=== PATIENT | male | born 1950 | race Caucasian/White ===

== ENCOUNTER 2017-05-16 06:59 | Outpatient (CLI) | payer MEDICARE ==
[2017-05-16 07:30] LABS: HEMATOCRIT 44.8 % (39.0-53.0); HEMOGLOBIN 15.3 g/dL (13.0-17.5); MEAN CORPUSCULAR HEMOGLOBIN 31 pg (25-35); MEAN CORPUSCULAR HGB CONC 34 g/dL (31-37); MEAN CORPUSCULAR VOLUME 91 fL (79-100); PLATELET COUNT 268 x10^3/uL (140-400); RED CELL DISTRIBUTION WIDTH 13.1 % (11.5-14.5); WHITE BLOOD COUNT 5.7 x10^3/uL (4.0-11.0)
[2017-05-16 07:32] LABS: ANION GAP 8 (6-14); BLOOD UREA NITROGEN 4 mg/dL (8-26); CARBON DIOXIDE 30 mmol/L (21-32); CHLORIDE 95 mmol/L (98-107); CREATININE 0.7 mg/dL (0.7-1.3); GFR 112.8; GLUCOSE 85 mg/dL (70-99); POTASSIUM 4.3 mmol/L (3.5-5.1); SODIUM 133 mmol/L (136-145)
[2017-05-16 07:41] LABS: PARTIAL THROMBOPLASTIN TIME 28 SEC (24-38); PROTHROMBIN TIME PATIENT 12.4 SEC (11.7-14.0)
[2017-05-16] MEDS ORDERED: IODIXANOL 320 MG/ML 100 ML VIAL. (08:03)
[2017-05-16] MEDS ORDERED: LIDOCAINE WITH 8.4% SOD BICARB 3 ML DISP.SYRIN. (08:03)
[2017-05-16] MEDS ORDERED: IODIXANOL 320MG/ML 50ML VIAL. ×2 (08:04→10:08)
[2017-05-16] MEDS ORDERED: MIDAZOLAM HCL/PF 2 MG/2 ML VIAL. ×2 (08:11→09:22)
[2017-05-16] MEDS ORDERED: fentaNYL PF VIAL 100 MCG/2 ML VIAL (08:12)
[2017-05-16] MEDS ORDERED: HEPARIN for IV BOLUS 10,000 UNIT/10 ML VIAL. (09:23)
[2017-05-16] MEDS: IODIXANOL 320 MG/ML 100 ML VIAL. IART (10:48)
[2017-05-16] MEDS: IODIXANOL 320MG/ML 50ML VIAL. IART (10:48)
[2017-05-16] MEDS: MIDAZOLAM HCL/PF 2 MG/2 ML VIAL. IV (10:49)
[2017-05-16] MEDS: LIDOCAINE WITH 8.4% SOD BICARB 3 ML DISP.SYRIN. IJ (10:49)
[2017-05-16] MEDS: fentaNYL PF VIAL 100 MCG/2 ML VIAL IV (10:50)
[2017-05-16] MEDS: HEPARIN for IV BOLUS 10,000 UNIT/10 ML VIAL. IV (10:51)
[2017-05-16] MEDS: CLOPIDOGREL BISULFATE 75 MG TABLET PO (11:00)
== END 2017-05-16 13:40 | disposition home or self-care (01) ==
LOC: INTRAD 06:59
DX: I70.213 Atherosclerosis of native arteries of extremities with intermittent claudication, bilateral legs (principal); I71.4 Abdominal aortic aneurysm, without rupture
CPT/HCPCS: 36415; 37226; 75625; 75630; 75716; 76937; 80048; 85027; 85610; 85730; 99152; 99153; C1713; C1725; C1760; C1769; C1892; C1894; C2623; G0269; J1644; J2250; J3010

== ENCOUNTER → 2018-03-27 | Outpatient (CLI) | payer MEDICARE ==
[~2018-03-27] VITALS: Ht 182.9 cm; Wt 72.6 kg
[2018-03-27] VITALS (10 sets, daily range): BP systolic 109–160; BP diastolic 62–78
[~2018-03-27] MED LIST: AMLO10TA6 PO; ASPI-482 PO; BENA20TA4 PO; CLOP75TA PO; CLOP75TA57 PO; CLOPIDOGREL BISULFATE 75 MG TABLET ONE; CLOPIDOGREL BISULFATE 75 MG TABLET PO ONE; CONTRAST GIVEN. MC PRN; HEPARIN for ARTERIAL LINE 1,500 ML ONE; HEPARIN for IV BOLUS 10,000 UNIT/10 ML VIAL. IV ONE; HEPARIN for IV BOLUS 10,000 UNIT/10 ML VIAL. ONE; IODIXANOL 320 MG/ML 100 ML VIAL. IV ONE; IODIXANOL 320 MG/ML 100 ML VIAL. ONE; IODIXANOL 320 MG/ML 50ML VIAL. ONE; LIDOCAINE WITH 8.4% SOD BICARB 3 ML DISP.SYRIN. IJ ONE; LIDOCAINE WITH 8.4% SOD BICARB 3 ML DISP.SYRIN. ONE; METO50TA6 PO; MIDAZOLAM HCL/PF 5 MG/5 ML VIAL. IV ONE; MIDAZOLAM HCL/PF 5 MG/5 ML VIAL. ONE; fentaNYL PF VIAL 250 MCG/5 ML VIAL IV ONE; fentaNYL PF VIAL 250 MCG/5 ML VIAL ONE
[2018-03-27 08:10] LABS: ALBUMIN 3.4 g/dL (3.4-5.0); ALBUMIN/GLOBULIN RATIO 0.8 (1.0-1.7); CALCIUM 9.1 mg/dL (8.5-10.1); CREATININE 0.8 mg/dL (0.7-1.3); GFR 96.7; POTASSIUM 4.8 mmol/L (3.5-5.1); TOTAL BILIRUBIN 0.7 mg/dL (0.2-1.0); TOTAL PROTEIN 7.5 g/dL (6.4-8.2)
[2018-03-27 08:19] LABS: BASO # 0.1 x10^3/uL (0.0-0.2); BASO % 2 % (0-3); EOS # 0.2 x10^3/uL (0.0-0.7); EOS % 3 % (0-3); HEMOGLOBIN 14.5 g/dL (13.0-17.5); LYMPH # 2.1 x10^3/uL (1.0-4.8); LYMPH % 39 % (24-48); MEAN CORPUSCULAR HEMOGLOBIN 30 pg (25-35); MEAN CORPUSCULAR HGB CONC 33 g/dL (31-37); MEAN CORPUSCULAR VOLUME 91 fL (79-100); MONO # 0.7 x10^3/uL (0.0-1.1); MONO % 13 % (0-9); NEUT # 2.4 x10^3uL (1.8-7.7); NEUT % 43 % (31-73); PLATELET COUNT 285 x10^3/uL (140-400); RED BLOOD COUNT 4.85 x10^6/uL (4.30-5.70); RED CELL DISTRIBUTION WIDTH 13.1 % (11.5-14.5); WHITE BLOOD COUNT 5.5 x10^3/uL (4.0-11.0)
--- NOTE | 2018-03-27 12:43 | RAD ---
03/27/2018 1. Pelvic angiography 2. Left lower extremity angiography 3. Balloon angioplasty and stenting of the right superficial femoral artery 4. Atherectomy of drug coated balloon angioplasty of the right common femoral artery 5. Placement of self expanding stent, left common iliac artery Discussion: Patient is a 67-year-old male with long-standing peripheral vascular disease and claudication. Over the last several months, the patient reports increasing left-sided claudication. Right claudication has improved following recent intervention. The risks and benefits of the procedure were discussed the patient. Informed consent was obtained. A timeout procedure was performed. The right groin was prepped and draped using sterile barrier technique. Ultrasound evaluation demonstrates the right common femoral artery to have mild narrowing secondary to posterior calcification, but an otherwise patent artery. The overlying skin was anesthetized 1% lidocaine. Under direct ultrasound guidance the right common femoral artery was accessed using micropuncture technique. Reference ultrasound images were saved the medical record. A 5 Haitian vascular sheath was placed. A Omni flush catheter was advanced into the inferior abdominal aorta. Pelvic angiography was performed. Diffuse irregularity of the right common and external iliac artery seen without evidence of flow-limiting stenosis. A 60% narrowing of the left common iliac artery is seen, just above the bifurcation of the internal iliac artery. Left external iliac artery is patent. The aortic bifurcation was crossed. The left common femoral artery was selected. Left lower extremity angiography was performed. Densely calcified eccentric up to 70% % stenoses are noted within the left common femoral artery extending of the proximal left SFA. Left profunda artery is patent. There is chronic total occlusion of the mid left SFA extending to the high adductor canal where there is reconstitution via tortuous collaterals. The popliteal artery is patent. The anterior tibial artery, and peroneal artery appear to be chronically occluded. Posterior tibial artery is a dominant blood supply to the foot. An up and over vascular sheath was placed. A guidewire was manipulated through the superficial femoral artery occlusion. Balloon dilatation was performed with a 4 mm x 100 mm balloon following angioplasty, suboptimal flow remained present. 6 mm x 15 cm and 6 mm x 5 cm covered stents were placed spanning the occlusion. This results in the good angiographic result. No significant distal localization was identified. Directional atherectomy was then performed within the right common femoral artery. Atherectomy was performed using a distal protection device. This resulted in some improvement but persistent narrowing. This was subsequently treated with 6 mm x 40 mm drug coated balloon angioplasty. This significantly improved morphology and flow. No significant distal embolization was identified. A 10 mm self expanding stent was placed spanning the distal left common iliac artery stenosis. This is postdilated to 10 mm. This significantly improved morphology and flow. No significant distal embolization was identified. A Mynx device was used to achieve hemostasis of the right common femoral puncture site. No immediate complications were identified. The patient tolerated the procedure well. The procedures performed under conscious sedation including continuous cardiopulmonary monitoring via a dedicated sedation nurse. Wequ-ur-fphs sedation time: 2 hours Total fluoroscopy time: 36.5 minutes Dose area product 223 Gycm2 Impression: 1. Chronic total occlusion, left superficial femoral artery, proximal 18 cm treated with angioplasty and self expanding covered stent placement 4. Densely calcified 70% narrowing of the left common femoral artery treated with directional atherectomy and drug coated balloon angioplasty. 5. 60% narrowing of the left common iliac artery treated with placement of a self-expanding stent.
--- NOTE | 2018-03-27 14:45 | NUR ---
Discharge Note: CHUCK SCHMITZ Discharge instructions and discharge home medications reviewed with patient and friend and a copy given. All questions have been answered and understanding verbalized including s/s requiring further attention, follow up, and site care. The following instructions and handouts were given: post stent placement, post moderate sedation, and smoking cessation Discontinued lines and drains:right wrist Patient discharged to home with friend.
[2018-03-29 17:15] LABS: ANA INTERP Negative (.)
== END | disposition home or self-care (01) ==
LOC: INTRAD 07:03
PROVIDERS: ATTEND Family Medicine
DX: I70.213 Atherosclerosis of native arteries of extremities with intermittent claudication, bilateral legs (principal); I70.92 Chronic total occlusion of artery of the extremities; Z79.899 Other long term (current) drug therapy
CPT/HCPCS: 36415; 37221; 37227; 75625; 75710; 76937; 80053; 82607; 84443; 85025; 85610; 86038; 99152; 99153; C1724; C1725; C1758; C1760; C1769; C1892; C1894; C2623; J1644; J2250; J3010; Q9967

== ENCOUNTER 2021-02-10 13:52 | Inpatient (IN) | payer MEDICARE ==
[2021-02-10] VITALS (12 sets, daily range): BP systolic 112–165; BP diastolic 67–96
[~2021-02-10] VITALS: Ht 181.6 cm; Wt 73.9 kg
[~2021-02-10 13:52] MED LIST changes: +AMLO-187 PO; -AMLO10TA6 PO; -BENA20TA4 PO; +BENA20TA84 PO; -CLOPIDOGREL BISULFATE 75 MG TABLET ONE; -CLOPIDOGREL BISULFATE 75 MG TABLET PO ONE; -CONTRAST GIVEN. MC PRN; -HEPARIN for ARTERIAL LINE 1,500 ML ONE; -HEPARIN for IV BOLUS 10,000 UNIT/10 ML VIAL. IV ONE; -HEPARIN for IV BOLUS 10,000 UNIT/10 ML VIAL. ONE; -IODIXANOL 320 MG/ML 100 ML VIAL. IV ONE; -IODIXANOL 320 MG/ML 100 ML VIAL. ONE; -IODIXANOL 320 MG/ML 50ML VIAL. ONE; -LIDOCAINE WITH 8.4% SOD BICARB 3 ML DISP.SYRIN. IJ ONE; -LIDOCAINE WITH 8.4% SOD BICARB 3 ML DISP.SYRIN. ONE; -MIDAZOLAM HCL/PF 5 MG/5 ML VIAL. IV ONE; -MIDAZOLAM HCL/PF 5 MG/5 ML VIAL. ONE; -fentaNYL PF VIAL 250 MCG/5 ML VIAL IV ONE; -fentaNYL PF VIAL 250 MCG/5 ML VIAL ONE
[2021-02-10 16:27] LABS: BASO % 0 % (0-3); EOS % 0 % (0-3); HEMATOCRIT 44.1 % (39.0-53.0); HEMOGLOBIN 14.4 g/dL (13.0-17.5); LYMPH # 1.2 x10^3/uL (1.0-4.8); LYMPH % 14 % (24-48); MEAN CORPUSCULAR HEMOGLOBIN 31 pg (25-35); MEAN CORPUSCULAR HGB CONC 33 g/dL (31-37); MEAN CORPUSCULAR VOLUME 95 fL (79-100); MONO # 0.9 x10^3/uL (0.0-1.1); MONO % 10 % (0-9); NEUT # 6.8 x10^3/uL (1.8-7.7); NEUT % 76 % (31-73); PLATELET COUNT 187 x10^3/uL (140-400); RED BLOOD COUNT 4.66 x10^6/uL (4.30-5.70); RED CELL DISTRIBUTION WIDTH 15.7 % (11.5-14.5)
--- NOTE | 2021-02-10 16:37 | RAD ---
INDICATION : Reason: jaundice / Spl. Instructions: / History: COMPARISON: None TECHNIQUE: Multiple ultrasound images obtained through the abdomen in grayscale and color. FINDINGS: Pancreas: No gross abnormality identified in visualized portions of pancreas. Partially seen secondar y to overlying structures obscuring. Liver: Mildly echogenic. Nonspecific but can be from fatty infiltration. Prominent in size. Gallbladder: There is some wall thickening of the gallbladder measuring up to about 6-7 mm with adjac ent edema. Definite stones not seen. Partially contracted. IVC: Well-distended. Common Bile Duct: Not dilated. Right Kidney: Couple of cysts at the right kidney measuring up to 24 mm without hydronephrosis. IMPRESSION: * Gallbladder wall thickening with pericholecystic edema. Differential considerations would include acalculus cholecystitis, reactive changes to adjacent liver disease or a systemic process such as hy poproteinemia. If additional information is needed nuclear hepatobiliary scan could further assess fo r cholecystitis. Electronically signed by: Red Ponce MD (02/10/2021 4:34 PM) [id number]
[2021-02-10 16:41] LABS: CALCIUM 8.5 mg/dL (8.5-10.1); CREATININE 0.8 mg/dL (0.7-1.3); GFR 95.8; POTASSIUM 4.2 mmol/L (3.5-5.1)
[2021-02-10 16:47] LABS: ALBUMIN 3.5 g/dL (3.4-5.0); ALBUMIN/GLOBULIN RATIO 0.9 (1.0-1.7); DIRECT BILIRUBIN 0.8 mg/dL (0.0-0.2); MAGNESIUM 2.1 mg/dL (1.8-2.4); PROTHROMBIN TIME PATIENT 16.7 SEC (11.7-14.0); TOTAL BILIRUBIN 2.9 mg/dL (0.2-1.0); TOTAL PROTEIN 7.2 g/dL (6.4-8.2)
--- NOTE | 2021-02-10 16:53 | RAD ---
EXAM: Chest, single view. HISTORY: Cough. COMPARISON: None. FINDINGS: A frontal view of the chest is obtained. There is cardiomegaly. There is no infiltrate, ple ural effusion or pneumothorax. There are chronic appearing interstitial changes. There is suspected b asilar atelectasis. There are calcified granulomas. IMPRESSION: Cardiomegaly. Chronic appearing interstitial changes with suspected basilar atelectasis. Electronically signed by: Susana Mcnulty MD (02/10/2021 4:50 PM) [id number]
--- NOTE | 2021-02-10 17:13 | PHYS DOC ---
Past Medical History Past Medical History: A-Fib, COPD, Hypertension, TIA, Other Additional Past Medical Histor: BRAIN ANEURSYM X2 (ANDREA GROSS APRN) Past Surgical History: Other Additional Past Surgical Histo: STENTS IN LEGS,BRAIN SURG (ANDREA GROSS APRN) Smoking Status: Current Every Day Smoker Additional Information: 0.5 PPD Alcohol Use: None (ANDREA GROSS APRN) General Adult EDM: Chief Complaint: MULTIPLE COMPLAINTS HPI: HPI: Patient is a 70 year old male who presents with abdominal fullness. Patient states "my belly has gotten bigger in the last couple of days". Patient denies nausea/vomiting/diarrhea. Afebrile. Denies abdominal pain. No chest pain or shortness of breath. Patient was recently treated with steroids for upper respiratory infection. Patient has history of A. fib, (ANDREA GROSS APRN) Review of Systems: Review of Systems: ROS At least 10 ROS systems have been reviewed and are negative except as documented in the HPI. General: Negative except as outlined in HPI above. Skin: Negative except as outlined in HPI above. HEENT: Negative except as outlined in HPI above. Neck: Negative except as outlined in HPI above. Respiratory: Negative except as outlined in HPI above.. Cardiovascular: Negative except as outlined in HPI above. Abdomen: Negative except as outlined in HPI above. : Negative except as outlined in HPI above. Back/MSK: Negative except as outlined in HPI above. Neuro: Negative except as outlined in HPI above. Psych: Negative except as outlined in HPI above. (ANDREA GROSS APRN) Heart Score: C/O Chest Pain: No Risk Factors: Risk Factors: DM, Current or recent (<one month) smoker, HTN, HLP, family history of CAD, obesity. Risk Scores: Score 0 - 3: 2.5% MACE over next 6 weeks - Discharge Home Score 4 - 6: 20.3% MACE over next 6 weeks - Admit for Clinical Observation Score 7 - 10: 72.7% MACE over next 6 weeks - Early Invasive Strategies (ANDREA GROSS APRN) Allergies: Allergies: Allergies Coded Allergies Type Severity Reaction Last Updated Verified No Known Drug Allergies 05/16/17 No (ANDREA GROSS APRN) Physical Exam: PE: Constitutional: Well developed, well nourished, no acute distress, non-toxic appearance. [] HENT: Normocephalic, atraumatic, bilateral external ears normal, oropharynx moist, no oral exudates, nose normal. [] Eyes: PERRLA, EOMI, yellow sclera, conjunctiva normal, no discharge. [] Neck: Normal range of motion, no tenderness, supple, no stridor. [] Cardiovascular:Heart rate regular rhythm, no murmur [] Lungs & Thorax: Bilateral breath sounds clear to auscultation [] Abdomen: Bowel sounds normal, distended, no tenderness Skin: Warm, dry, jaundice scabs on bilateral lower feet Back: No tenderness, no CVA tenderness. [] Extremities: No tenderness, ROM intact, bilateral peripheral edema Neurologic: Alert and oriented X 3, normal motor function, normal sensory function, no focal deficits noted. [] Psychologic: Affect normal, judgement normal, mood normal. [] (ANDREA GROSS APRN) Current Patient Data: Labs: Laboratory Tests Test 02/10/21 15:38 White Blood Count 9.0 x10^3/uL (4.0-11.0) Red Blood Count 4.66 x10^6/uL (4.30-5.70) Hemoglobin 14.4 g/dL (13.0-17.5) Hematocrit 44.1 % (39.0-53.0) Mean Corpuscular Volume 95 fL (79-100) Mean Corpuscular Hemoglobin 31 pg (25-35) Mean Corpuscular Hemoglobin Concent 33 g/dL (31-37) Red Cell Distribution Width 15.7 % (11.5-14.5) H Platelet Count 187 x10^3/uL (140-400) Neutrophils (%) (Auto) 76 % (31-73) H Lymphocytes (%) (Auto) 14 % (24-48) L Monocytes (%) (Auto) 10 % (0-9) H Eosinophils (%) (Auto) 0 % (0-3) Basophils (%) (Auto) 0 % (0-3) Neutrophils # (Auto) 6.8 x10^3/uL (1.8-7.7) Lymphocytes # (Auto) 1.2 x10^3/uL (1.0-4.8) Monocytes # (Auto) 0.9 x10^3/uL (0.0-1.1) Eosinophils # (Auto) 0.0 x10^3/uL (0.0-0.7) Basophils # (Auto) 0.0 x10^3/uL (0.0-0.2) Sodium Level 134 mmol/L (136-145) L Potassium Level 4.2 mmol/L (3.5-5.1) Chloride Level 95 mmol/L (98-107) L Carbon Dioxide Level 30 mmol/L (21-32) Anion Gap 9 (6-14) Blood Urea Nitrogen 18 mg/dL (8-26) Creatinine 0.8 mg/dL (0.7-1.3) Estimated GFR (Cockcroft-Gault) 95.8 BUN/Creatinine Ratio 23 (6-20) H Glucose Level 99 mg/dL (70-99) Calcium Level 8.5 mg/dL (8.5-10.1) Magnesium Level 2.1 mg/dL (1.8-2.4) Total Bilirubin 2.9 mg/dL (0.2-1.0) H Direct Bilirubin 0.8 mg/dL (0.0-0.2) H Aspartate Amino Transferase (AST) 23 U/L (15-37) Alanine Aminotransferase (ALT) 33 U/L (16-63) Alkaline Phosphatase 132 U/L (46-116) H Total Protein 7.2 g/dL (6.4-8.2) Albumin 3.5 g/dL (3.4-5.0) Albumin/Globulin Ratio 0.9 (1.0-1.7) L Ethyl Alcohol Level < 10 mg/dL (0-10) Laboratory Tests 02/10/21 15:38 Laboratory Tests 02/10/21 15:38 Vital Signs: Vital Signs Date Time Temp Pulse Resp B/P (MAP) Pulse Ox O2 Delivery O2 Flow Rate FiO2 02/10/21 15:50 150 159/96 (117) Room Air 02/10/21 15:17 97.7 20 98 97.7 (ANDREA GROSS APRN) EKG: EKG: [] 1534sinus tachycardia, heart rate [address] elevation. Read by Dr. Verde 1843A. fib RVR, heart rate 133 bpm, no ST elevation. Read by Dr. Verde (ANDREA GROSS APRN) Radiology/Procedures: Radiology/Procedures: []INDICATION : Reason: jaundice / Spl. Instructions: / History: COMPARISON: None TECHNIQUE: Multiple ultrasound images obtained through the abdomen in grayscale and color. FINDINGS: Pancreas: No gross abnormality identified in visualized portions of pancreas. Partially seen secondary to overlying structures obscuring. Liver: Mildly echogenic. Nonspecific but can be from fatty infiltration. Prominent in size. Gallbladder: There is some wall thickening of the gallbladder measuring up to about 6-7 mm with adjacent edema. Definite stones not seen. Partially contracted. IVC: Well-distended. Common Bile Duct: Not dilated. Right Kidney: Couple of cysts at the right kidney measuring up to 24 mm without hydronephrosis. IMPRESSION: * Gallbladder wall thickening with pericholecystic edema. Differential considerations would include acalculus cholecystitis, reactive changes to adjacent liver disease or a systemic process such as hypoproteinemia. If additional information is needed nuclear hepatobiliary scan could further assess for cholecystitis. Electronically signed by: Red Ponce MD (02/10/2021 4:34 PM) DocalyticsKTOP- [id number] EXAM: Chest, single view. HISTORY: Cough. COMPARISON: None. FINDINGS: A frontal view of the chest is obtained. There is cardiomegaly. There is no infiltrate, pleural effusion or pneumothorax. There are chronic appearing interstitial changes. There is suspected basilar atelectasis. There are calcified granulomas. IMPRESSION: Cardiomegaly. Chronic appearing interstitial changes with suspected basilar atelectasis. Electronically signed by: Susana Mcnulty MD (02/10/2021 4:50 PM) [id number] (ANDREA GROSS APRN) Course & Med Decision Making: Course & Med Decision Making Pertinent Labs and Imaging studies reviewed. (See chart for details) [] 70-year-old male presents with abdominal distention, urinary retention, bilateral peripheral edema. Patient states that he has had trouble with urinating for last couple of days and that is when he noticed abdominal distention as well. Patient sclera. Very yellow and his skin was very jaundiced. Abdominal distention appears to most likely be from ascites. Patient states he drinks 1 beer a day. Patient was denying abdominal pain, shortness of breath, chest pain. Patient's heart rate was elevated in the 150s, but showing sinus tachycardia. Patient has a history of A. fib. Patient currently takes Xarelto but denies any medication for rate control.. Work-up in ER consist of labs, urinalysis, normal ultrasound, chest x-ray, CT abdomen pelvis. Ultrasound shows gallbladder wall thickening with pericholecystic edema with possible cholecystitis, liver disease or a systemic process such as hypoproteinemia. CT abdomen and pelvis ordered. Jiang was placed due to urinary retention. 400 cc out after Jiang placed. Patient's rhythm changed from sinus tachycardia to A. fib RVR. Patient given Cardizem bolus and Cardizem drip started. WBC, 9.0. Total bili 2.9, direct bili 0.8, alkaline phosphate 132. BNP 9653, lipase 73 Discussed results with patient. Advised patient that he would need to be admi tted to the hospital for further management and consult with cardiology. Patient agrees with discharge plan. I spoke with Dr. Lyman who will be accepting patient for A. fib RVR, urinary retention, CHF exacerbation. (ANDREA GROSS APRN) Course & Med Decision Making This patient was initially seen by the nurse practitioner. She was unsure how to proceed with his emergency department work-up and treatment/management of his condition. I saw the patient personally. He has had some increased abdominal girth and bloating. He is had some mild jaundice and scleral icterus, for quite some time, per the patient and his . This is not new today at all. He is manifesting evidence of significant tachycardia, atrial fibrillation with rapid ventricular response. There is some mild lateral ischemic changes noted. He adamantly denies chest pain or dyspnea. He denies dizziness, focal weakness or syncope. I ordered diltiazem bolus and drip. The patient denies abdominal pain. On exam he does have appear to have a fluid wave and at least mild ascites with abdominal distention. He has no tenderness at all on abdominal exam. He has no evidence of right upper quadrant tenderness, no evidence of SBP clinically. I suspect periportal edema from liver disease and ascites explains that radiographic findings of the gallbladder. Clinically he does not have any evidence of cholecystitis, and he continues to deny any subjective complaints of abdominal pain or nausea or vomiting or biliary colic symptoms. He has been afebrile here. He denies fevers at home. He has not been able to urinate very well, and only small amounts. His bladder is palpable up to his umbilicus. I recommend the patient have a Jiang catheter placed. Urine is pending at time of his admission. The nurse practitioners told explicitly to follow-up on the results of this exam. He will be admitted to Dr. Lyman. (DARIUS VERDE DO) Keisha Disclaimer: Keisha Disclaimer: This electronic medical record was generated, in whole or in part, using a voice recognition dictation system. (ANDREA GROSS APRN) Departure Departure Impression: Primary Impression: Urinary retention Additional Impression: Atrial fibrillation with RVR Disposition: ADMITTED INPATIENT Admitting Physician: Sofia Lyman (DARIUS VERDE DO) Condition: GUARDED Referrals: SOFIA LYMAN MD (PCP) Scripts Furosemide (LASIX) 20 Mg Tablet 1 TAB PO DAILY for chf for 30 Days, #30 TAB 0 Refills Prov: SOFIA LYMAN MD 02/13/21 Metoprolol Succinate (METOPROLOL SUCCINATE ( XL )) 100 Mg Tab.er.24h 100 MG PO DAILY for a-fib for 30 Days, #30 TAB.SR Prov: SOFIA LYMAN MD 02/13/21 Tamsulosin Hcl (FLOMAX) 0.4 Mg Cap.er.24h 0.4 MG PO QHS for bph for 30 Days, #30 CAP.SR Prov: SOFIA LYMAN MD 02/13/21 ANDREA GROSS APRN Feb 10, 2021 17:13 DARIUS VERDE DO Feb 15, 2021 08:42
[2021-02-10] MEDS ORDERED: IV NORMAL SALINE 1000ML BAG 1,000 ML IV ONE (17:15)
[2021-02-10] MEDS ORDERED: ASPIRIN CHEWABLE 81 MG TABLET. PO ONE (18:00)
[2021-02-10] MEDS ORDERED: FUROSEMIDE 20 MG/2 ML VIAL. IVP ONE (18:00)
[2021-02-10 18:57] LABS: BILIRUBIN,URINE SMALL (NEG); CLARITY,URINE CLEAR; COLOR,URINE AMBER; NITRITE,URINE NEGATIVE (NEG); PH,URINE 5.5 (<5.0-8.0); PROTEIN,URINE 30 mg/dL (NEG-TRACE)
[2021-02-10] MEDS ORDERED: PIPERACILLIN/TAZOBACTAM 3.375 GM in IV NORMAL SALINE 50ML 50 ML IV ONE (19:00)
[2021-02-10] MEDS ORDERED: IOHEXOL 300 MG/ML 100ML VIAL. IV ONE (19:00)
[2021-02-10 19:04] LABS: BARBITURATES NEG (NEG); BENZODIAZEPINES NEG (NEG); CANNABINOIDS NEG (NEG); COCAINE NEG (NEG); METHADONE NEG (NEG); OPIATES POS (NEG); PHENCYCLIDINE NEG (NEG)
[2021-02-10 19:05] LABS: AMPHETAMINE/METHAMPHETAMINE NEG (NEG)
[2021-02-10 19:06] LABS: BACTERIA,URINE 0 /HPF (0-FEW); RBC,URINE >40 /HPF (0-2); WBC,URINE 0 /HPF (0-4)
--- NOTE | 2021-02-10 19:13 | RAD ---
CT abdomen pelvis with contrast. HISTORY: Jaundice, abdominal distention CT abdomen pelvis was done using 75 mL Omnipaque 300 contrast. There are small bilateral pleural effu sions. There is mild atelectasis in the lung bases. A focal liver lesion is not identified. Spleen is small. Adrenal glands are unremarkable. Pancreatic lesion is not identified. There is extensive vasc ular calcification. There is no hydronephrosis in the kidneys. There are bilateral renal cysts. There is mild ascites. There is no small bowel obstruction. There is a Jiang in the bladder. There is a 4. 6 cm abdominal aortic aneurysm without rupture. Thin reconstruction images could be of benefit to bet ter evaluate the mesenteric vessels. 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 There is some decreased enhancement of the portal vein although identified defi nitive portal thrombosis is not identified. IMPRESSION: 1. Bilateral effusions. 2. Mild ascites. 3. 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 4. 4.6 cm abdominal aortic aneurysm. 5. A focal liver lesion is not identified. PQRS Compliance Statement: One or more of the following individualized dose reduction techniques were utilized for this examinat ion: 1. Automated exposure control 2. Adjustment of the mA and/or kV according to patient size 3. Use of iterative reconstruction technique Electronically signed by: Boris Feliz MD (02/10/2021 7:11 PM) [facility]
[2021-02-10] MEDS ORDERED: RIVA15TA PO (21:03)
--- NOTE | 2021-02-10 21:44 | NUR ---
ADMThe patient, CHUCK SCHMITZ, 70 y/o, M admitted by SOFIA MONTEMAYOR MD, was given written information regarding hospital policies, unit procedures and contact persons. Valuables were checked and documented. explained poc, pt verbalized understanding. will cont to monitor pt status and safety. pmrn.
--- NOTE | 2021-02-10 23:33 | EKG ---
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
[2021-02-11] VITALS (25 sets, daily range): BP systolic 55–141; BP diastolic 47–100
--- NOTE | 2021-02-11 09:52 | PDOC2 ---
GI CONSULT Date of Service: DATE: 02/11/21 TIME: 09:52 Reason For Consult: elevated bilirubin HPI: HPI: 70 y/o male seen with Dr. Ng earlier this morning. Says he was admitted w/ A Fib and COPD, also discusses need for catheter to drain his bladder. ER notes reviewed - c/o abdominal distention, urinary retention, and constipation. We are asked to see for elevated bilirubin (2.9) which was normal in 2019 on rev iew of past labs. He reports h/o heavy alcohol use in the past but no liver problems he's aware of. Takes Xarelto. FELECIA negative in 2019. PMH: PMH: A Fib, COPD, HTN, TIAs, PAD LE stents, brain aneurysm repair Social History: Smoke: <1 pack per day ALCOHOL: other (1 beer daily, heavier in past) ROS: GEN: Denies fevers, chills, sweats HEENT: Denies blurred vision, sore throat CV: +fluttering heart RESP: +SOA GI: Per HPI : +urinary retention ENDO: Denies weight changes NEURO: Denies confusion, dizziness MSK: Denies weakness, joint pain/swelling SKIN: Denies jaundice, pruritus Vitals: Vitals: Vital Signs Date Time Temp Pulse Resp B/P (MAP) Pulse Ox O2 Delivery O2 Flow Rate FiO2 02/11/21 07:00 97.6 89 18 135/78 (97) 97 Nasal Cannula 2.0 97.6 Labs: Labs: Laboratory Tests Test 02/10/21 15:38 02/10/21 16:50 02/10/21 17:14 02/10/21 18:28 White Blood Count 9.0 x10^3/uL (4.0-11.0) Red Blood Count 4.66 x10^6/uL (4.30-5.70) Hemoglobin 14.4 g/dL (13.0-17.5) Hematocrit 44.1 % (39.0-53.0) Mean Corpuscular Volume 95 fL (79-100) Mean Corpuscular Hemoglobin 31 pg (25-35) Mean Corpuscular Hemoglobin Concent 33 g/dL (31-37) Red Cell Distribution Width 15.7 % (11.5-14.5) Platelet Count 187 x10^3/uL (140-400) Neutrophils (%) (Auto) 76 % (31-73) Lymphocytes (%) (Auto) 14 % (24-48) Monocytes (%) (Auto) 10 % (0-9) Eosinophils (%) (Auto) 0 % (0-3) Basophils (%) (Auto) 0 % (0-3) Neutrophils # (Auto) 6.8 x10^3/uL (1.8-7.7) Lymphocytes # (Auto) 1.2 x10^3/uL (1.0-4.8) Monocytes # (Auto) 0.9 x10^3/uL (0.0-1.1) Eosinophils # (Auto) 0.0 x10^3/uL (0.0-0.7) Basophils # (Auto) 0.0 x10^3/uL (0.0-0.2) Prothrombin Time 16.7 SEC (11.7-14.0) Prothromb Time International Ratio 1.4 (0.8-1.1) Activated Partial Thromboplast Time 31 SEC (24-38) Sodium Level 134 mmol/L (136-145) Potassium Level 4.2 mmol/L (3.5-5.1) Chloride Level 95 mmol/L (98-107) Carbon Dioxide Level 30 mmol/L (21-32) Anion Gap 9 (6-14) Blood Urea Nitrogen 18 mg/dL (8-26) Creatinine 0.8 mg/dL (0.7-1.3) Estimated GFR (Cockcroft-Gault) 95.8 BUN/Creatinine Ratio 23 (6-20) Glucose Level 99 mg/dL (70-99) Calcium Level 8.5 mg/dL (8.5-10.1) Magnesium Level 2.1 mg/dL (1.8-2.4) Total Bilirubin 2.9 mg/dL (0.2-1.0) Direct Bilirubin 0.8 mg/dL (0.0-0.2) Aspartate Amino Transf (AST/SGOT) 23 U/L (15-37) Alanine Aminotransferase (ALT/SGPT) 33 U/L (16-63) Alkaline Phosphatase 132 U/L (46-116) XR-Uzn-[id number]-Type Natriuretic Peptide 9653 pg/mL (0-124) Total Protein 7.2 g/dL (6.4-8.2) Albumin 3.5 g/dL (3.4-5.0) Albumin/Globulin Ratio 0.9 (1.0-1.7) Ethyl Alcohol Level < 10 mg/dL (0-10) Ammonia < 10 mcmol/L (11-34) Lipase 73 U/L (73-393) Urine Collection Type U cath Urine Color Rufina Urine Clarity Clear Urine pH 5.5 (<5.0-8.0) Urine Specific [place] 1.025 (1.000-1.030) Urine Protein 30 mg/dL (NEG-TRACE) Urine Glucose (UA) Negative mg/dL (NEG) Urine Ketones (Stick) Negative mg/dL (NEG) Urine Blood Large (NEG) Urine Nitrite Negative (NEG) Urine Bilirubin Small (NEG) Urine Urobilinogen Dipstick 1.0 mg/dL (0.2 mg/dL) Urine Leukocyte Esterase Negative (NEG) Urine RBC >40 /HPF (0-2) Urine WBC 0 /HPF (0-4) Urine Bacteria 0 /HPF (0-FEW) Urine Mucus Mod /LPF Urine Opiates Screen Pos (NEG) Urine Methadone Screen Neg (NEG) Urine Barbiturates Neg (NEG) Urine Phencyclidine Screen Neg (NEG) Urine Amphetamine/Methamphetamine Neg (NEG) Urine Benzodiazepines Screen Neg (NEG) Urine Cocaine Screen Neg (NEG) Urine Cannabinoids Screen Neg (NEG) Urine Ethyl Alcohol Neg (NEG) Test 02/10/21 19:15 02/10/21 19:32 SARS-CoV-2 Antigen (Rapid) Negative (NEGATIVE) SARS-CoV-2 RNA (JUAN) Negative (Negative) Allergies: Coded Allergies: No Known Drug Allergies (Unverified , 05/16/17) Medications: Current Medications Medications (Trade) Dose Ordered Sig/Sam Route PRN Reason Start Time Stop Time Status Last Admin Dose Admin Sodium Chloride 1,000 ml @ 1,000 mls/hr 1X ONCE IV 02/10/21 17:15 02/10/21 18:14 DC 02/10/21 17:20 Diltiazem HCl (Cardizem Iv Push) 10 mg 1X ONCE IVP 02/10/21 18:00 02/10/21 18:01 DC 02/10/21 18:18 Aspirin (Aspirin Chewable) 324 mg 1X ONCE PO 02/10/21 18:00 02/10/21 18:01 DC 02/10/21 18:17 Furosemide (Lasix) 20 mg 1X ONCE IVP 02/10/21 18:00 02/10/21 18:01 DC 02/10/21 18:17 Diltiazem HCl 125 mg/Sodium Chloride 125 ml @ 5 mls/hr CONT PRN IV PER PROTOCOL 02/10/21 18:30 02/11/21 01:07 Iohexol (Omnipaque 300 Mg/ml) 75 ml 1X ONCE IV 02/10/21 19:00 02/10/21 19:01 DC 02/10/21 18:56 Imaging: Imaging: CXR IMPRESSION: Cardiomegaly. Chronic appearing interstitial changes with suspected basilar atelectasis. Abd US FINDINGS: Pancreas: No gross abnormality identified in visualized portions of pancreas. Partially seen secondary to overlying structures obscuring. Liver: Mildly echogenic. Nonspecific but can be from fatty infiltration. Prominent in size. Gallbladder: There is some wall thickening of the gallbladder measuring up to about 6-7 mm with adjacent edema. Definite stones not seen. Partially contracted. IVC: Well-distended. Common Bile Duct: Not dilated. Right Kidney: Couple of cysts at the right kidney measuring up to 24 mm without hydronephrosis. IMPRESSION: * Gallbladder wall thickening with pericholecystic edema. Differential considerations would include acalculus cholecystitis, reactive changes to adjacent liver disease or a systemic process such as hypoproteinemia. If additional information is needed nuclear hepatobiliary scan could further assess for cholecystitis. CT A/P HISTORY: Jaundice, abdominal distention CT abdomen pelvis was done using 75 mL Omnipaque 300 contrast. There are small bilateral pleural effusions. There is mild atelectasis in the lung bases. A focal liver lesion is not identified. Spleen is small. Adrenal glands are unremarkable. Pancreatic lesion is not identified. There is extensive vascular calcification. There is no hydronephrosis in the kidneys. There are bilateral renal cysts. There is mild ascites. There is no small bowel obstruction. There is a Jiang in the bladder. There is a 4.6 cm abdominal aortic aneurysm without rupture. Thin reconstruction images could be of benefit to better evaluate the mesenteric vessels. There appears to be celiac and SMA stenosis not optimally visualized on these images. There is some decreased enhancement of the portal v ein although identified definitive portal thrombosis is not identified. IMPRESSION: 1. Bilateral effusions. 2. Mild ascites. 3. 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 4. 4.6 cm abdominal aortic aneurysm. 5. A focal liver lesion is not identified. PE: GEN: NAD HEENT: Atraumatic LUNGS: diminished, NC HEART: irregular ABD: somewhat distended in appearance, not tight, non-tender EXTREMITY: BLE edema SKIN: +jaundice NEURO/PSYCH: A & O 3 - bit fuzzy on details A/P: A/P: A Fib RVR, elevated BNP, urinary retention Hyperbilirubinemia, mildly elevated Alk Phos Fatty liver, ?h/o alcohol, mild ascites COVID negative -- Address cardiac issues. Ammonia normal. US and CT reviewed - noted prominent liver, possible fatty infiltration, normal CBD, no liver lesion, and mild ascites. Pt seen w/ Dr. Ng - check Hepatitis panel for completeness and monitor LFTs. Doesn't seem like much ascites for paracentesis to be therapeutic - will review w/ Dr. Ng if need for diagnostic paracentesis. BARB DAVILA Feb 11, 2021 09:52
[2021-02-11] MEDS: RIVAROXABAN 15 MG TABLET. PO SCH (10:02)
[2021-02-11] MEDS: METOPROLOL TART IMMED RELEASE 50 MG TABLET. PO SCH (10:03)
[2021-02-11] MEDS: LISINOPRIL 20 MG TABLET PO SCH (10:04)
--- NOTE | 2021-02-11 10:58 | NUR ---
SS following for discharge planning. SS reviewed pt chart and discussed with pt RN. Pt is from home with spouse and is currently requiring oxygen at two liters nasal canula. COVID19 negative. GI and Cardiology consulted. [place]. SS will continue to follow for discharge planning.
--- NOTE | 2021-02-11 11:58 | PDOC2 ---
CARDIAC CONSULT DATE OF CONSULT Date of Consult DATE: 02/11/21 TIME: 11:56 REASON FOR CONSULT Reason for Consult: AFIB with RVR REFERRING PHYSICIAN Referring Physician: Marivel Piña APRN SOURCE Source: Chart review, Patient HISTORY OF PRESENT ILLNESS HISTORY OF PRESENT ILLNESS This is a 70 yo male who presented secondary to abdominal swelling. Patient reports he was started on steroids a almost 2 weeks ago for "lung infection". A couple of days after starting steroids, developed swelling in his abdomen. Also noted LE edema. Had difficulty urinating. He denies any chest pain, palpitations, or nausea/vomiting. Upon arrival, was noted in AFIB with RVR, which prompted this consult. Was initiated on Cardizem gtt. Oral metoprolol resumed this morning. Patient is now bradycardic and mildly hypotensive. Cardizem gtt discontinued. Patient does have known history of AFIB and is on Xarelto. PAST MEDICAL HISTORY Cardiovascular: AFIB, HTN CENTRAL NERVOUS SYSTEM: TIA, Other (aneursym) Musculoskeletal: Osteoarthritis PAST SURGICAL HISTORY Past Surgical History: Other (vasectomy ) FAMILY HISTORY Family History: Heart Disease, Hypertension SOCIAL HISTORY Smoke: <1 pack per day ALCOHOL: none Drugs: None Lives: with Family CURRENT MEDICATIONS CURRENT MEDICATIONS Current Medications Medications (Trade) Dose Ordered Sig/Sam Route PRN Reason Start Time Stop Time Status Last Admin Dose Admin Sodium Chloride 1,000 ml @ 1,000 mls/hr 1X ONCE IV 02/10/21 17:15 02/10/21 18:14 DC 02/10/21 17:20 Diltiazem HCl (Cardizem Iv Push) 10 mg 1X ONCE IVP 02/10/21 18:00 02/10/21 18:01 DC 02/10/21 18:18 Aspirin (Aspirin Chewable) 324 mg 1X ONCE PO 02/10/21 18:00 02/10/21 18:01 DC 02/10/21 18:17 Furosemide (Lasix) 20 mg 1X ONCE IVP 02/10/21 18:00 02/10/21 18:01 DC 02/10/21 18:17 Diltiazem HCl 125 mg/Sodium Chloride 125 ml @ 5 mls/hr CONT PRN IV PER PROTOCOL 02/10/21 18:30 02/11/21 01:07 Iohexol (Omnipaque 300 Mg/ml) 75 ml 1X ONCE IV 02/10/21 19:00 02/10/21 19:01 DC 02/10/21 18:56 Amlodipine Besylate (Norvasc) 10 mg DAILY PO 02/11/21 09:00 02/11/21 10:03 Metoprolol Tartrate (Lopressor) 50 mg BID PO 02/11/21 09:00 02/11/21 10:03 Rivaroxaban (Xarelto) 15 mg DAILY PO 02/11/21 09:00 02/11/21 10:02 Lisinopril (Prinivil) 20 mg DAILY PO 02/11/21 09:00 02/11/21 10:04 ALLERGIES ALLERGIES: Coded Allergies: No Known Drug Allergies (Unverified , 05/16/17) ROS Review of System 14 point ROS conducted with pertinent positives noted above in hPI PHYSICAL EXAM General: Alert, Oriented X3, Cooperative, No acute distress HEENT: Atraumatic Lungs: Other (diminished bases) Heart: Other (AFIB with slow VR) Abdomen: Soft Extremities: Other (1+ bilateral LE edema ) Neuro: Normal speech, Sensation intact Psych/Mental Status: Mental status NL, Mood NL MUSCULOSKELETAL: Osteoarthritic changes both hands VITALS/I&O VITALS/I&O: Vital Signs Date Time Temp Pulse Resp B/P (MAP) Pulse Ox O2 Delivery O2 Flow Rate FiO2 02/11/21 11:00 97.4 87 18 141/80 (100) 98 Nasal Cannula 2.0 97.4 I & O 02/10/21 02/10/21 02/11/21 14:59 22:59 06:59 Intake Total 1120 ml 200 ml Output Total 1925 ml Balance 1120 ml -1725 ml LABS Lab: Laboratory Tests Test 02/10/21 15:38 02/10/21 16:50 02/10/21 17:14 02/10/21 18:28 White Blood Count 9.0 x10^3/uL (4.0-11.0) Red Blood Count 4.66 x10^6/uL (4.30-5.70) Hemoglobin 14.4 g/dL (13.0-17.5) Hematocrit 44.1 % (39.0-53.0) Mean Corpuscular Volume 95 fL (79-100) Mean Corpuscular Hemoglobin 31 pg (25-35) Mean Corpuscular Hemoglobin Concent 33 g/dL (31-37) Red Cell Distribution Width 15.7 % (11.5-14.5) H Platelet Count 187 x10^3/uL (140-400) Neutrophils (%) (Auto) 76 % (31-73) H Lymphocytes (%) (Auto) 14 % (24-48) L Monocytes (%) (Auto) 10 % (0-9) H Eosinophils (%) (Auto) 0 % (0-3) Basophils (%) (Auto) 0 % (0-3) Neutrophils # (Auto) 6.8 x10^3/uL (1.8-7.7) Lymphocytes # (Auto) 1.2 x10^3/uL (1.0-4.8) Monocytes # (Auto) 0.9 x10^3/uL (0.0-1.1) Eosinophils # (Auto) 0.0 x10^3/uL (0.0-0.7) Basophils # (Auto) 0.0 x10^3/uL (0.0-0.2) Prothrombin Time 16.7 SEC (11.7-14.0) H Prothrombin Time INR 1.4 (0.8-1.1) H Activated Partial Thromboplast Time 31 SEC (24-38) Sodium Level 134 mmol/L (136-145) L Potassium Level 4.2 mmol/L (3.5-5.1) Chloride Level 95 mmol/L (98-107) L Carbon Dioxide Level 30 mmol/L (21-32) Anion Gap 9 (6-14) Blood Urea Nitrogen 18 mg/dL (8-26) Creatinine 0.8 mg/dL (0.7-1.3) Estimated GFR (Cockcroft-Gault) 95.8 BUN/Creatinine Ratio 23 (6-20) H Glucose Level 99 mg/dL (70-99) Calcium Level 8.5 mg/dL (8.5-10.1) Magnesium Level 2.1 mg/dL (1.8-2.4) Total Bilirubin 2.9 mg/dL (0.2-1.0) H Direct Bilirubin 0.8 mg/dL (0.0-0.2) H Aspartate Amino Transferase (AST) 23 U/L (15-37) Alanine Aminotransferase (ALT) 33 U/L (16-63) Alkaline Phosphatase 132 U/L (46-116) H PC-Bqb-E-Type Natriuretic Peptide 9653 pg/mL (0-124) H Total Protein 7.2 g/dL (6.4-8.2) Albumin 3.5 g/dL (3.4-5.0) Albumin/Globulin Ratio 0.9 (1.0-1.7) L Ethyl Alcohol Level < 10 mg/dL (0-10) Ammonia < 10 mcmol/L (11-34) L Lipase 73 U/L (73-393) Urine Collection Type U cath Urine Color Rufina Urine Clarity Clear Urine pH 5.5 (<5.0-8.0) Urine Specific [place] 1.025 (1.000-1.030) Urine Protein 30 mg/dL (NEG-TRACE) Urine Glucose (UA) Negative mg/dL (NEG) Urine Ketones (Stick) Negative mg/dL (NEG) Urine Blood Large (NEG) Urine Nitrite Negative (NEG) Urine Bilirubin Small (NEG) Urine Urobilinogen Dipstick 1.0 mg/dL (0.2 mg/dL) Urine Leukocyte Esterase Negative (NEG) Urine RBC >40 /HPF (0-2) Urine WBC 0 /HPF (0-4) Urine Bacteria 0 /HPF (0-FEW) Urine Mucus Mod /LPF Urine Opiates Screen Pos (NEG) Urine Methadone Screen Neg (NEG) Urine Barbiturates Neg (NEG) Urine Phencyclidine Screen Neg (NEG) Urine Amphetamine/Methamphetamine Neg (NEG) Urine Benzodiazepines Screen Neg (NEG) Urine Cocaine Screen Neg (NEG) Urine Cannabinoids Screen Neg (NEG) Urine Ethyl Alcohol Neg (NEG) Test 02/10/21 19:15 02/10/21 19:32 SARS-CoV-2 Antigen (Rapid) Negative (NEGATIVE) SARS-CoV-2 RNA (JUAN) Negative (Negative) Laboratory Tests 02/10/21 15:38 Laboratory Tests 02/10/21 15:38 ASSESSMENT/PLAN ASSESSMENT/PLAN 1. Ascites, elevated bilirubin 2. Acute on chronic probable diastolic CHF; s/p Lasix 3. AFIB with RVR; treated with Cardizem gtt. Metoprolol resumed. became mildly bradycardic, hypotensive. Cardizem gtt discontinued. Remains in AFIB with slow VR. Rate near 50. 4. Hypertension; presently low end 5. Coagulopathy; is on chronic OAC with Xarelto 6. Urinary retention; s/p Jiang 7. Tobaccoism Recommendations Continue metoprolol for rate control. Monitor for bradyarrhythmias Echo to assess LV systolic function TSH, Lipids Mild diuresis when BP adequate Supportive care Follow AZAEL Avelar APRN Feb 11, 2021 11:58
[2021-02-11] MEDS ORDERED: BISACODYL 5 MG TABLET.DR. PO PRN (12:00)
[2021-02-11] MEDS ORDERED: POLYETHYLENE GLYCOL 3350 17 GM PACKET. PO PRN (12:00)
[2021-02-11] MEDS ORDERED: IV NORMAL SALINE 500ML BAG 500 ML IV ONE ×2 (12:30→14:45)
--- NOTE | 2021-02-11 14:41 | NUR ---
Cardizem drip turned off around 1100 due to patient becoming bradycardic in mostly 50s, notified Harriet with cardiology. Patient also became hypotensive at 1148 at 55/47, recheck was 86/62. Harriet with cardiology ordered 250cc NS bolus, Dr. Marks notified & another order for 250cc bolus ordered. Patient on frequent BP/HR checks. Will continue to monitor.
--- NOTE | 2021-02-11 16:14 | HP ---
DATE OF SERVICE: 02/11/2021 ADMIT DATE: 02/10/2021 CHIEF COMPLAINT AND HISTORY OF PRESENT ILLNESS: This 70-year-old male is well known to me from followup in the office. The patient presented to the Emergency Room on the day of admission with inability to pee and abdominal fullness. He was found to have a very distended bladder and Jiang catheter was placed. He was found on imaging to have mild ascites and gallbladder wall thickening. On chest x-ray he was found to have some interstitial findings with cardiomegaly. He was also found to be in AFib with rapid ventricular response. He does have a history of AFib. He was admitted for the constellation of symptoms. Bilirubin was mildly elevated at 2.9 with an alkaline phos minimally elevated. His INR was 1.4, but he takes Xarelto, which will affect the INR, so I do not believe that it is relevant. PAST MEDICAL HISTORY: Remarkable for AFib, COPD, hypertension, TIA, PAD. He has had a couple of brain aneurysms in the past, stenting of his legs due to PAD. MEDICATIONS: Brought with the patient, listed on computer have been addressed. ALLERGIES: He has no known drug allergies. SOCIAL HISTORY: He is a half a pack per day smoker. Drinks 2 beers a day. Does not abuse drugs. , lives at home with his , he is retired. FAMILY HISTORY: Remarkable for vascular disease. REVIEW OF SYSTEMS: Remarkable for not liking to have a catheter placed, but likes the feeling of a drained bladder and might like to keep the catheter with him. He currently feels like his breathing and stuff is in pretty good shape. PHYSICAL EXAMINATION: GENERAL: He is a well-developed, well-nourished male in no acute distress at this time of my examination. VITAL SIGNS: Stable. He is afebrile. He is on a Cardizem drip with a pulse of 100. HEAD, EYES, EARS, NOSE AND THROAT: Unremarkable. NECK: Supple without adenopathy or thyromegaly. CHEST: Reveals decreased breath sounds bilaterally, but clear. HEART: Irregularly irregular with rate of about 100. ABDOMEN: Soft, nontender, without hepatosplenomegaly or mass. EXTREMITIES: Without cyanosis, clubbing or edema. NEUROLOGIC: He is intact. LABORATORY DATA: Initial laboratory is remarkable for an essentially normal CBC. Chem panel was remarkable for a sodium of 134. Bilirubin of 2.9. BNP of 9653. INR again is 1.4. Toxicology screen shows positive opiates and COVID testing is negative. ASSESSMENT: 1. Urinary retention with Jiang placement. 2. Atrial fibrillation with rapid ventricular response with Cardiology to see and currently controlled rate. 3. Elevated bilirubin and trace ascites. No bladder wall thickening, which certainly could be consistent with something otherwise, but I would favor being more due to congestive heart failure due to atrial fibrillation with rapid ventricular response. 4. Elevated INR of 1.4, which is likely related to Xarelto. PLAN: 1. Flomax with voiding trial in the next day or two. If not, will need urological evaluation. 2. Cardiology, GI consults for the other abnormalities. MATT/KIRSTIN/FRANCISCO CRANE: MATT/gopal TID: [id number]
[2021-02-11] MEDS ORDERED: NICOTINE 14MG PATCH. TD PRN (17:30)
[2021-02-11] MEDS ORDERED: ACETAMINOPHEN 325 MG TABLET. PO PRN (20:30)
[2021-02-11] MEDS: TAMSULOSIN 0.4 MG CAP.ER.24H. PO SCH (20:32)
[2021-02-12] VITALS (8 sets, daily range): BP systolic 98–132; BP diastolic 60–75
[2021-02-12] MEDS: METOPROLOL TART IMMED RELEASE 50 MG TABLET. PO SCH ×2 (01:05→08:27)
--- NOTE | 2021-02-12 03:36 | EKG ---
[facility] [address] [place] [address] Test Date: 2021-02-10 Test Time: 18:43:57 Pat Name: CHUCK SCHMITZ Department: Room: 1 Gender: M District Or District Office Director: : [id number] Requested By: ANDREA GROSS Order Number: [id number] Reading MD: Jimy Marks MD Measurements Intervals [place] Rate: 133 P: 90 MN: 122 QRS: 80 QRSD: 98 T: -81 QT: 314 QTc: 469 Interpretive Statements Atrial fibrillation with rapid ventricular response NON-SPECIFIC ST/T CHANGES CONSIDER LATERAL ISCHEMIA Electronically Signed On 02-16-2021 15:01:09 SEWER AND INSPECTOR by Jimy Marks MD
[2021-02-12 05:10] LABS: ALBUMIN 2.7 g/dL (3.4-5.0); DIRECT BILIRUBIN 0.8 mg/dL (0.0-0.2); TOTAL BILIRUBIN 2.2 mg/dL (0.2-1.0); TOTAL PROTEIN 5.9 g/dL (6.4-8.2)
[2021-02-12 05:14] LABS: CHOLESTEROL/HDL RATIO 3.2
[2021-02-12] MEDS: LISINOPRIL 20 MG TABLET PO SCH (08:28)
[2021-02-12] MEDS: RIVAROXABAN 15 MG TABLET. PO SCH (08:28)
--- NOTE | 2021-02-12 09:57 | PDOC ---
Date of Service: DATE: 02/12/21 TIME: 09:52 Subjective: Subjective: Mostly relates issues w/ urinary retention prior to admission, also still concerned w/ SOA and A Fib. Says it all started w/ prednisone x 10 days for a lung infection. Denies GI complaints. No previous 'scopes, denies chronic GI issues. Objective: Objective: Viral Hep panel negative. Plt normal, INR 1.4 on Xarelto, AST and ALT and Alk Phos WNL. Received IV Lasix x 1. Vital Signs: Vital Signs Date Time Temp Pulse Resp B/P (MAP) Pulse Ox O2 Delivery O2 Flow Rate FiO2 02/12/21 08:28 96 113/72 02/12/21 07:00 97.3 20 94 Nasal Cannula 3.0 97.3 Labs: Laboratory Tests Test 02/12/21 03:45 Total Bilirubin 2.2 mg/dL Direct Bilirubin 0.8 mg/dL Aspartate Amino Transf (AST/SGOT) 24 U/L Alanine Aminotransferase (ALT/SGPT) 27 U/L Alkaline Phosphatase 99 U/L Total Protein 5.9 g/dL Albumin 2.7 g/dL Triglycerides Level 54 mg/dL Cholesterol Level 122 mg/dL LDL Cholesterol, Calculated 73 mg/dL VLDL Cholesterol, Calculated 11 mg/dL Non-HDL Cholesterol Calculated 84 mg/dL HDL Cholesterol 38 mg/dL Cholesterol/HDL Ratio 3.2 Thyroid Stimulating Hormone (TSH) 2.122 uIU/mL Hepatitis A IgM Antibody Nonreactive Hepatitis B Surface Antigen Nonreactive Hepatitis B Core IgM Antibody Nonreactive Hepatitis C IgG Antibody Nonreactive Imaging: Echocardiogram 02/12 pending PE: GEN: NAD LUNGS: diminished HEART: irregular ABD: some distention? stable from yesterday EXTREMITY: less LE edema NEURO/PSYCH: A & O 3 - better A/P: A Fib (on Xarelto), CHF, urinary retention Mild ascites, fatty liver, hyperbilirubinemia (improved), h/o alcohol COVID negative -- Observe from GI standpoint - ?more diuretics - cardiology following Justicifation of Admission Dx: Justifications for Admission: Justification of Admission Dx: Yes BARB DAVILA Feb 12, 2021 09:57
--- NOTE | 2021-02-12 11:09 | PDOC ---
ABEL EMERY HIGH LEAD YARDER 02/12/21 1109: CARDIO Progress Notes Date and Time Date of Service 02/12/2021 Time of Evaluation 1020 Subjective Subjective: No Chest Pain, No shortness of breath, No Palpitations Vitals Vitals Vital Signs Date Time Temp Pulse Resp B/P (MAP) Pulse Ox O2 Delivery O2 Flow Rate FiO2 02/12/21 08:28 96 113/72 02/12/21 07:00 97.3 20 94 Nasal Cannula 3.0 97.3 Weight Weight [ ] Input and Output Intake and Output Intake and Output 02/12/21 07:00 Intake Total 390 ml Output Total 500 ml Balance -110 ml Intake Oral 390 ml Output Urine Total 500 ml Laboratory Labs Laboratory Tests Test 02/12/21 03:45 Total Bilirubin 2.2 mg/dL (0.2-1.0) Direct Bilirubin 0.8 mg/dL (0.0-0.2) Aspartate Amino Transf (AST/SGOT) 24 U/L (15-37) Alanine Aminotransferase (ALT/SGPT) 27 U/L (16-63) Alkaline Phosphatase 99 U/L (46-116) Total Protein 5.9 g/dL (6.4-8.2) Albumin 2.7 g/dL (3.4-5.0) Triglycerides Level 54 mg/dL (0-150) Cholesterol Level 122 mg/dL (0-200) LDL Cholesterol, Calculated 73 mg/dL (0-100) VLDL Cholesterol, Calculated 11 mg/dL (0-40) Non-HDL Cholesterol Calculated 84 mg/dL (0-129) HDL Cholesterol 38 mg/dL (40-60) Cholesterol/HDL Ratio 3.2 Thyroid Stimulating Hormone (TSH) 2.122 uIU/mL (0.358-3.74) Hepatitis A IgM Antibody Nonreactive (Nonreactive) Hepatitis B Surface Antigen Nonreactive (Nonreactive) Hepatitis B Core IgM Antibody Nonreactive (Nonreactive) Hepatitis C IgG Antibody Nonreactive (Nonreactive) Physical Exam HEENT: Neck Supple W Full Motion Chest: Symmetric LUNGS: Other (diminished) Heart: irregularly irregular (AFIB) Abdomen: Soft N/T, Other (ascites) Extremities: No Calf Tenderness Neurology: alert, oriented, follow commands Assessment Assessment 1. Ascites, elevated bilirubin 2. 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 AFIB with RVR; reported as not new per spouse. rate better 4. Hypertension; controlled 5. Coagulopathy; is on chronic OAC with Xarelto 6. Urinary retention; s/p Jiang 7. Tobaccoism 8. Suspect cardiomyopathy Recommendations Change to toprol. Will also consider for MCOT to note any issues with kajal cardia Continue xarelto for stroke prevention If no recent ischemic workup then will need one and could be done as an outpt. 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 Will consider for outpt CVN Lasix therapy Follow up with Dr. Marks March 27 at 2:15 PM Follow GI recs Justicifation of Admission Dx: Justifications for Admission: Justification of Admission Dx: Yes SCOOTER MARKS MD 02/12/21 1436: CARDIO Progress Notes Plan Plan Patient seen and examined. Agree with above nurse practitioner note. Supportive care from a cardiovascular perspective. We will follow up in the office. Ok to DC from CV standpoint. Thanks ABEL EMERY APRN Feb 12, 2021 11:09 SCOOTER MARKS MD Feb 12, 2021 14:36
[2021-02-12] MEDS ORDERED: METOPROLOL SUCC 24HR ER 50 MG TAB.ER.24H. PO ONE (11:15)
[2021-02-12] MEDS: FUROSEMIDE 40 MG/4 ML VIAL. IVP SCH (12:58)
--- NOTE | 2021-02-12 14:30 | NUR ---
SS following up with discharge planning. SS reviewed pt chart and discussed with pt RN. Pt is currently requiring oxygen at three liters nasal canula. COVID19 negative. Pt has no home oxygen. Cardiology and GI following. Pt on IV Lasix. SS will continue to follow for discharge planning.
--- NOTE | 2021-02-12 15:52 | CARD ---
MR#: [id number] Date of Study: 02/12/2021 Ordering Physician: AZAEL NARAYANAN, Referring Physician: AZAEL NARAYAANN, Tech: Jeanette Drake [facility] APPROVED REPORT EXAM: Two-dimensional and M-mode echocardiogram with Doppler and color Doppler. Other Information Quality : GoodHR: 112bpm Rhythm : Atrial Fibrillation INDICATION Atrial Fibrillation RISK FACTORS Hypertension 2D DIMENSIONS RVDd3.9 (2.9-3.5cm)Left Atrium(2D)5.2 (1.6-4.0cm) IVSd1.1 (0.7-1.1cm)Aortic Root(2D)4.0 (2.0-3.7cm) LVDd5.1 (3.9-5.9cm)LVOT Diameter2.2 (1.8-2.4cm) PWd1.1 (0.7-1.1cm)LVDs4.1 (2.5-4.0cm) FS (%) 20.0 %SV50.8 ml Aortic Valve AoV Peak Bhavesh.117.5cm/sAoV VTI19.5cm AO Peak GR.5.5mmHgLVOT Peak Bhavesh.75.9cm/s AO Mean GR.3mmHgAVA (VMAX)2.47cm2 Pulmonary Valve PV Peak Soqkopne12.6cm/s Tricuspid Valve TR P. Nzsnybut563mi/sTR Peak Gr.31mmHg LEFT VENTRICLE The left ventricle is normal size. There is borderline concentric left ventricular hypertrophy. LV sy stolic function is severely decreased. The ejection fraction is estimated at 25%. There is severe gl obal hypokinesis of the left ventricle. RIGHT VENTRICLE The right ventricle is normal size. There is normal right ventricular wall thickness. Systolic functi on is mildly reduced. ATRIA The left atrium is severely dilated. The right atrium is severely dilated. The interatrial septum is intact with no evidence for an atrial septal defect or patent foramen ovale as noted on 2-D or Dopple r imaging. AORTIC VALVE The aortic valve is normal in structure and function. Doppler and Color Flow revealed no significant aortic regurgitation. There is no significant aortic valvular stenosis. MITRAL VALVE The mitral valve is normal in structure and function. There is no evidence of mitral valve prolapse. There is no mitral valve stenosis. Doppler and Color-flow revealed moderate to moderately severe mitr al regurgitation. TRICUSPID VALVE The tricuspid valve is normal in structure and function. Doppler and Color Flow revealed moderately s evere tricuspid regurgitation. Estimated PAP 40 mmHg. There is no tricuspid valve stenosis. PULMONIC VALVE The pulmonary valve is normal in structure and function. Doppler and Color Flow revealed mild pulmoni c valvular regurgitation. GREAT VESSELS The aortic root is mildly enlarged. The IVC is dilated and collapses <50% with inspiration. PERICARDIAL EFFUSION There is no evidence of significant pericardial effusion. Critical Notification Critical Value: No <Conclusion> The left ventricle is normal size. LV systolic function is severely decreased. The ejection fraction is estimated at 25%. There is severe global hypokinesis of the left ventricle. There is borderline concentric left ventricular hypertrophy. The left atrium is severely dilated. The right atrium is severely dilated. Doppler and Color Flow revealed no significant aortic regurgitation. There is no significant aortic valvular stenosis. Doppler and Color-flow revealed moderate to moderately severe mitral regurgitation. Doppler and Color Flow revealed moderately severe tricuspid regurgitation. Estimated PAP 40 mmHg. Signed by : Tripp Vital MD Electronically Approved : 02/12/2021 15:52:34
[2021-02-12] MEDS: TAMSULOSIN 0.4 MG CAP.ER.24H. PO SCH (20:51)
--- NOTE | 2021-02-13 01:02 | PN ---
DATE: 02/12/2021 DAILY PROGRESS NOTE LOCATION: He is in room 671. SUBJECTIVE: This 70-year-old male remains hospitalized with combination of issues; the primary, which is urinary retention with a Jiang. He feels much better with the Jiang, has been on Flomax now for about 12 hours and we will attempt to remove the Jiang tomorrow morning. He also has had atrial fibrillation, which is chronic with rapid ventricular response, which Cardiology is following, and currently rate is much better. He has had an elevated bilirubin and trace ascites with no specific findings at this point in time. An elevated INR, which is likely related to Xarelto prior to admission. OBJECTIVE: VITAL SIGNS: Stable. He is afebrile. GENERAL: He is awake and alert. He has no specific complaints. CHEST: Reveals decreased breath sounds. He still complains of shortness of breath walking to the restroom and I am not sure how much of this is COPD or how much of this is atrial fibrillation. HEART: Irregularly irregular with rate of 100. ABDOMEN: Slightly distended, nontender, without hepatosplenomegaly or mass. EXTREMITIES: Without cyanosis, clubbing, significant edema. NEUROLOGIC: He is intact. ASSESSMENT: 1. Urinary retention with indwelling Jiang, on Flomax. 2. Atrial fibrillation with a better ventricular response. 3. Elevated bilirubin, which is better this morning and my suspicion still has a lot of this is due to heart failure, due to atrial fibrillation. 4. Elevated INR, likely related to the Xarelto ____. PLAN: Discontinue Jiang trial with likely discharge tomorrow if he can void. If not, will need to go home with the Jiang catheter. We will repeat a CMP in the morning to trend liver test. MATT/SHANICE/MARYANNE DR: MATT/gopal TID: [id number]
[2021-02-13 03:14] VITALS: BP 113/70
[2021-02-13 05:07] LABS: ALBUMIN 2.9 g/dL (3.4-5.0); DIRECT BILIRUBIN 0.7 mg/dL (0.0-0.2); TOTAL BILIRUBIN 1.7 mg/dL (0.2-1.0); TOTAL PROTEIN 6.1 g/dL (6.4-8.2)
[2021-02-13 05:13] LABS: ALBUMIN 2.9 g/dL (3.4-5.0); ALBUMIN/GLOBULIN RATIO 0.8 (1.0-1.7); CALCIUM 8.4 mg/dL (8.5-10.1); GFR 74.1; TOTAL BILIRUBIN 1.7 mg/dL (0.2-1.0); TOTAL PROTEIN 6.4 g/dL (6.4-8.2)
[2021-02-13 07:28] VITALS: BP 118/76
[2021-02-13] MEDS ORDERED: RIVAROXABAN 10 MG TABLET. PO SCH (08:00)
[2021-02-13] MEDS: FUROSEMIDE 40 MG/4 ML VIAL. IVP SCH (08:55)
[2021-02-13] MEDS: LISINOPRIL 20 MG TABLET PO SCH (08:58)
[2021-02-13] MEDS ORDERED: METOPROLOL SUCC 24HR ER 100 MG TAB.ER.24H. PO SCH (09:00)
[2021-02-13] MEDS ORDERED: FURO-69 PO (10:13)
[2021-02-13] MEDS ORDERED: TAMS0.4C97 PO (10:13)
[2021-02-13] MEDS ORDERED: METO-247 PO (10:13)
[2021-02-13 10:29] VITALS: BP 93/69
--- NOTE | 2021-02-13 12:17 | PDOC ---
G I PROGRESS NOTE Reason for Follow-up Cirrhosis/Increased LFTS Subjective Feeling better/waiting to go home Physical Exam Lungs clear CV S1 S2 irregular ABD +BS, soft, mildly distended Review of Relevant I have reviewed the following items ayde (where applicable) has been applied. Labs Laboratory Tests Test 02/12/21 03:45 02/13/21 03:30 Total Bilirubin 2.2 mg/dL (0.2-1.0) 1.7 mg/dL (0.2-1.0) Direct Bilirubin 0.8 mg/dL (0.0-0.2) 0.7 mg/dL (0.0-0.2) Aspartate Amino Transf (AST/SGOT) 24 U/L (15-37) 23 U/L (15-37) Alanine Aminotransferase (ALT/SGPT) 27 U/L (16-63) 29 U/L (16-63) Alkaline Phosphatase 99 U/L (46-116) 118 U/L (46-116) Total Protein 5.9 g/dL (6.4-8.2) 6.4 g/dL (6.4-8.2) Albumin 2.7 g/dL (3.4-5.0) 2.9 g/dL (3.4-5.0) Triglycerides Level 54 mg/dL (0-150) Cholesterol Level 122 mg/dL (0-200) LDL Cholesterol, Calculated 73 mg/dL (0-100) VLDL Cholesterol, Calculated 11 mg/dL (0-40) Non-HDL Cholesterol Calculated 84 mg/dL (0-129) HDL Cholesterol 38 mg/dL (40-60) Cholesterol/HDL Ratio 3.2 Thyroid Stimulating Hormone (TSH) 2.122 uIU/mL (0.358-3.74) Hepatitis A IgM Antibody Nonreactive (Nonreactive) Hepatitis B Surface Antigen Nonreactive (Nonreactive) Hepatitis B Core IgM Antibody Nonreactive (Nonreactive) Hepatitis C IgG Antibody Nonreactive (Nonreactive) Sodium Level 139 mmol/L (136-145) Potassium Level 4.0 mmol/L (3.5-5.1) Chloride Level 99 mmol/L (98-107) Carbon Dioxide Level 35 mmol/L (21-32) Anion Gap 5 (6-14) Blood Urea Nitrogen 28 mg/dL (8-26) Creatinine 1.0 mg/dL (0.7-1.3) Estimated GFR (Cockcroft-Gault) 74.1 BUN/Creatinine Ratio 28 (6-20) Glucose Level 96 mg/dL (70-99) Calcium Level 8.4 mg/dL (8.5-10.1) Albumin/Globulin Ratio 0.8 (1.0-1.7) Laboratory Tests Test 02/13/21 03:30 Sodium Level 139 mmol/L (136-145) Potassium Level 4.0 mmol/L (3.5-5.1) Chloride Level 99 mmol/L (98-107) Carbon Dioxide Level 35 mmol/L (21-32) Anion Gap 5 (6-14) Blood Urea Nitrogen 28 mg/dL (8-26) Creatinine 1.0 mg/dL (0.7-1.3) Estimated GFR (Cockcroft-Gault) 74.1 BUN/Creatinine Ratio 28 (6-20) Glucose Level 96 mg/dL (70-99) Calcium Level 8.4 mg/dL (8.5-10.1) Total Bilirubin 1.7 mg/dL (0.2-1.0) Direct Bilirubin 0.7 mg/dL (0.0-0.2) Aspartate Amino Transf (AST/SGOT) 23 U/L (15-37) Alanine Aminotransferase (ALT/SGPT) 29 U/L (16-63) Alkaline Phosphatase 118 U/L (46-116) Total Protein 6.4 g/dL (6.4-8.2) Albumin 2.9 g/dL (3.4-5.0) Albumin/Globulin Ratio 0.8 (1.0-1.7) Medications Current Medications Sodium Chloride 1,000 ml @ 1,000 mls/hr 1X ONCE IV Last administered on 02/10/21at 17:20; Start 02/10/21 at 17:15; Stop 02/10/21 at 18:14; Status DC Diltiazem HCl (Cardizem Iv Push) 10 mg 1X ONCE IVP Last administered on 02/10/21at 18:18; Start 02/10/21 at 18:00; Stop 02/10/21 at 18:01; Status DC Aspirin (Aspirin Chewable) 324 mg 1X ONCE PO Last administered on 02/10/21at 18:17; Start 02/10/21 at 18:00; Stop 02/10/21 at 18:01; Status DC Furosemide (Lasix) 20 mg 1X ONCE IVP Last administered on 02/10/21at 18:17; Start 02/10/21 at 18:00; Stop 02/10/21 at 18:01; Status DC Diltiazem HCl 125 mg/Sodium Chloride 125 ml @ 5 mls/hr CONT PRN IV PER PROTOCOL Last administered on 02/11/21at 01:07; Start 02/10/21 at 18:30 Piperacillin Sod/ Tazobactam Sod 3.375 gm/Sodium Chloride 50 ml @ 100 mls/hr 1X ONCE IV ; Start 02/10/21 at 19:00; Stop 02/10/21 at 18:35; Status DC Iohexol (Omnipaque 300 Mg/ml) 75 ml 1X ONCE IV Last administered on 02/10/21at 18:56; Start 02/10/21 at 19:00; Stop 02/10/21 at 19:01; Status DC Amlodipine Besylate (Norvasc) 10 mg DAILY PO Last administered on 02/13/21at 08:57; Start 02/11/21 at 09:00 Metoprolol Tartrate (Lopressor) 50 mg BID PO Last administered on 02/12/21at 08:27; Start 02/11/21 at 09:00; Stop 02/12/21 at 11:02; Status DC Rivaroxaban (Xarelto) 15 mg DAILY PO Last administered on 02/12/21at 08:28; Start 02/11/21 at 09:00; Stop 02/12/21 at 13:06; Status DC Lisinopril (Prinivil) 20 mg DAILY PO Last administered on 02/13/21at 08:58; Start 02/11/21 at 09:00 Polyethylene Glycol (miraLAX PACKET) 17 gm PRN DAILY PRN PO CONSTIPATION; Start 02/11/21 at 12:00 Bisacodyl (Dulcolax Tab) 5 mg PRN DAILY PRN PO CONSTIPATION; Start 02/11/21 at 12:00 Sodium Chloride 500 ml @ 999 mls/hr 1X ONCE IV Last administered on 02/11/21at 12:10; Start 02/11/21 at 12:30; Stop 02/11/21 at 13:00; Status DC Sodium Chloride 500 ml @ 500 mls/hr 1X ONCE IV Last administered on 02/11/21at 12:00; Start 02/11/21 at 14:45; Stop 02/11/21 at 15:44; Status DC Tamsulosin HCl (Flomax) 0.4 mg QHS PO Last administered on 02/12/21at 20:51; Start 02/11/21 at 21:00 Nicotine (Nicoderm Cq 14mg) 1 patch PRN DAILY PRN TD SMOKING CESSATION Last administered on 02/12/21at 10:24; Start 02/11/21 at 17:30 Acetaminophen (Tylenol) 650 mg PRN Q6HRS PRN PO MILD PAIN / TEMP > 100.3'F Last administered on 02/11/21at 20:33; Start 02/11/21 at 20:30 Furosemide (Lasix) 40 mg DAILY IVP Last administered on 02/13/21at 08:55; Start 02/12/21 at 11:30 Metoprolol Succinate (Toprol Xl) 50 mg 1X ONCE PO Last administered on 02/12/21at 12:58; Start 02/12/21 at 11:15; Stop 02/12/21 at 11:16; Status DC Metoprolol Succinate (Toprol Xl) 100 mg DAILY PO Last administered on 02/13/21at 08:57; Start 02/13/21 at 09:00 Rivaroxaban (Xarelto) 20 mg DAILYWBKFT PO Last administered on 02/13/21at 08:55; Start 02/13/21 at 08:00 Active Scripts Active Lasix (Furosemide) 20 Mg Tablet 1 Tab PO DAILY 30 Days Metoprolol Succinate ( Xl ) (Metoprolol Succinate) 100 Mg Tab.er.24h 100 Mg PO DAILY 30 Days Flomax (Tamsulosin Hcl) 0.4 Mg Cap.er.24h 0.4 Mg PO QHS 30 Days Reported Xarelto (Rivaroxaban) 15 Mg Tablet 15 Mg PO DAILY Benazepril Hcl 20 Mg Tablet 20 Mg PO DAILY Amlodipine Besylate 10 Mg Tablet 10 Mg PO DAILY Vitals/I & O Vital Sign - Last 24 Hours 02/12/21 02/12/21 02/12/21 02/12/21 12:58 15:00 18:46 19:01 Temp 96.0 97.8 96.0 97.8 Pulse 102 104 75 88 Resp 20 18 18 B/P (MAP) 125/71 98/70 (79) 102/65 (77) 104/63 (77) Pulse Ox 95 99 96 O2 Delivery Nasal Cannula Room Air Room Air O2 Flow Rate 3.0 02/12/21 02/12/21 02/12/21 02/13/21 19:13 20:13 22:31 03:14 Temp 98.6 98.5 97.7 98.6 98.5 97.7 Pulse 108 106 118 Resp 18 20 20 B/P (MAP) 132/72 (92) 119/75 (90) 113/70 (84) Pulse Ox 100 96 99 O2 Delivery Nasal Cannula Nasal Cannula Nasal Cannula Nasal Cannula O2 Flow Rate 3.0 3.0 3.0 3.0 02/13/21 02/13/21 02/13/21 02/13/21 07:28 08:57 08:57 08:58 Temp 97.8 97.8 Pulse 117 117 117 117 Resp 20 B/P (MAP) 118/76 (90) 118/76 118/76 118/76 Pulse Ox 99 O2 Delivery Nasal Cannula O2 Flow Rate 3.0 02/13/21 10:29 Temp 97.6 97.6 Pulse 100 Resp 20 B/P (MAP) 93/69 (77) Pulse Ox 94 O2 Delivery Room Air Intake and Output 02/12/21 02/12/21 02/13/21 15:00 23:00 07:00 Intake Total 0 ml 340 ml 500 ml Output Total 550 ml 1300 ml Balance 0 ml -210 ml -800 ml Problem List CIrrhosis- with cardiac contribution with afib and CHF, medical therpay with alcohol abstinence residential Justicifation of Admission Dx: Justifications for Admission: Justification of Admission Dx: Yes SHANAE LAM MD Feb 13, 2021 12:17
--- NOTE | 2021-02-13 12:29 | PDOC ---
PROGRESS NOTES Date of Service: DATE: 02/13/21 TIME: 12:29 Subjective Subjective Feeling better, wants to go home Objective Objective Vital Signs Date Time Temp Pulse Resp B/P (MAP) Pulse Ox O2 Delivery O2 Flow Rate FiO2 02/13/21 10:29 97.6 100 20 93/69 (77) 94 Room Air 97.6 02/13/21 07:28 3.0 Intake and Output 02/13/21 07:00 Intake Total 840 ml Output Total 1850 ml Balance -1010 ml Intake Oral 840 ml Output Urine Total 1850 ml Physical Exam Abdomen: Soft Heart: Other (AFIB with slow VR) Extremities: Other (1+ bilateral LE edema ) General: Alert, Oriented X3, Cooperative, No acute distress HEENT: Atraumatic Lungs: Other (diminished bases) MUSCULOSKELETAL: Osteoarthritic changes both hands Neuro: Normal speech, Sensation intact Psych/Mental Status: Mental status NL, Mood NL Assessment Assessment 1. Ascites, elevated bilirubin 2. 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 AFIB with RVR; rate better controlled. Patient apparently had cardioversion 8 years ago with [employer] 4. Hypertension; controlled 5. Coagulopathy; is on chronic OAC with Xarelto 6. Urinary retention; s/p Jiang 7. Tobaccoism Recommendations 2D echo showed LVEF 25% with moderate to severe mitral regurgitation Continue beta-blockers for rate control. Continue xarelto for stroke prevention Plan outpatient ischemic evaluation as an outpatient Follow-up as scheduled Comment Review of Relevant I have reviewed the following items ayde (where applicable) has been applied. Labs Laboratory Tests Test 02/13/21 03:30 Sodium Level 139 mmol/L (136-145) Potassium Level 4.0 mmol/L (3.5-5.1) Chloride Level 99 mmol/L (98-107) Carbon Dioxide Level 35 mmol/L (21-32) Anion Gap 5 (6-14) Blood Urea Nitrogen 28 mg/dL (8-26) Creatinine 1.0 mg/dL (0.7-1.3) Estimated GFR (Cockcroft-Gault) 74.1 BUN/Creatinine Ratio 28 (6-20) Glucose Level 96 mg/dL (70-99) Calcium Level 8.4 mg/dL (8.5-10.1) Total Bilirubin 1.7 mg/dL (0.2-1.0) Direct Bilirubin 0.7 mg/dL (0.0-0.2) Aspartate Amino Transf (AST/SGOT) 23 U/L (15-37) Alanine Aminotransferase (ALT/SGPT) 29 U/L (16-63) Alkaline Phosphatase 118 U/L (46-116) Total Protein 6.4 g/dL (6.4-8.2) Albumin 2.9 g/dL (3.4-5.0) Albumin/Globulin Ratio 0.8 (1.0-1.7) Medications Current Medications Metoprolol Succinate (Toprol Xl) 100 mg DAILY PO Last administered on 02/13/21at 08:57; Start 02/13/21 at 09:00 Rivaroxaban (Xarelto) 20 mg DAILYWBKFT PO Last administered on 02/13/21at 08:55; Start 02/13/21 at 08:00 Vitals/I & O Vital Sign - Last 24 Hours 02/12/21 02/12/21 02/12/21 02/12/21 12:58 15:00 18:46 19:01 Temp 96.0 97.8 96.0 97.8 Pulse 102 104 75 88 Resp 20 18 18 B/P (MAP) 125/71 98/70 (79) 102/65 (77) 104/63 (77) Pulse Ox 95 99 96 O2 Delivery Nasal Cannula Room Air Room Air O2 Flow Rate 3.0 02/12/21 02/12/21 02/12/21 02/13/21 19:13 20:13 22:31 03:14 Temp 98.6 98.5 97.7 98.6 98.5 97.7 Pulse 108 106 118 Resp 18 20 20 B/P (MAP) 132/72 (92) 119/75 (90) 113/70 (84) Pulse Ox 100 96 99 O2 Delivery Nasal Cannula Nasal Cannula Nasal Cannula Nasal Cannula O2 Flow Rate 3.0 3.0 3.0 3.0 02/13/21 02/13/21 02/13/21 02/13/21 07:28 08:57 08:57 08:58 Temp 97.8 97.8 Pulse 117 117 117 117 Resp 20 B/P (MAP) 118/76 (90) 118/76 118/76 118/76 Pulse Ox 99 O2 Delivery Nasal Cannula O2 Flow Rate 3.0 02/13/21 10:29 Temp 97.6 97.6 Pulse 100 Resp 20 B/P (MAP) 93/69 (77) Pulse Ox 94 O2 Delivery Room Air Intake and Output 02/12/21 02/12/21 02/13/21 15:00 23:00 07:00 Intake Total 0 ml 340 ml 500 ml Output Total 550 ml 1300 ml Balance 0 ml -210 ml -800 ml CORNEL MIRANDA MD Feb 13, 2021 12:29
--- NOTE | 2021-02-13 13:24 | NUR ---
patient discharged 02/13. taken out by wheelchair.
--- NOTE | 2021-02-13 18:03 | DS ---
DATE OF DISCHARGE: 02/13/2021 PRIMARY DIAGNOSES: 1. Urinary retention requiring Jiang catheterization, likely made worse by [id number] cold medicines. 2. Atrial fibrillation with a rapid ventricular response. 3. Elevated bilirubin. 4. Congestive heart failure. 5. Elevated INR related to Xarelto. CHIEF COMPLAINT AND HISTORY OF PRESENT ILLNESS: This 70-year-old male presented to the Emergency Room with abdominal pain and distention and inability to urinate. He was found to have a distended bladder. Jiang catheter was placed. He was also noted to have atrial fibrillation with rapid ventricular response. Cardiology was consulted for the same and was also noted to have an elevated bilirubin and GI came along for their opinions in addition. SUMMARY OF STAY: The patient was admitted. Jiang catheterization was continued until the early interventionist of discharge. He was placed on Flomax and was able to urinate. He was cautioned about [id number] cold medicines going forward. His AFib rate was decreased down to around 100 ayde with beta blockers. He has had a prior evaluation ____ through Cardiology for possible ablation and has not followed up and this will be undertaken as an outpatient. He was fluid overloaded, diuresed nicely during the stay. We will continue on some diuretics at discharge. GI felt there was some underlying liver disease, although his bilirubin did decrease through the stay with diuresis and imaging showed no focal deficits. He was felt ready for discharge with outpatient followup on the day of dismissal and this was accomplished. DISPOSITION: The patient was discharged to home. DIET: Regular diet. ACTIVITY: As tolerated, office in the next 2 weeks. DISCHARGE MEDICATIONS: Listed on the [facility] have been addressed. ODETTE/FRANCISCO CRANE: Shamir TID: [id number]
== END 2021-02-13 11:20 | disposition home or self-care (01) | DRG 309 ==
LOC: ER 13:52 → 6 SOUTH 17:38
PROVIDERS: ADMIT Family Medicine; ATTEND Family Medicine
DX: I48.91 Unspecified atrial fibrillation (principal); D68.9 Coagulation defect, unspecified; R18.8 Other ascites; R33.9 Retention of urine, unspecified; F17.210 Nicotine dependence, cigarettes, uncomplicated; I11.0 Hypertensive heart disease with heart failure; I71.4 Abdominal aortic aneurysm, without rupture; J44.9 Chronic obstructive pulmonary disease, unspecified; K59.00 Constipation, unspecified; K74.60 Unspecified cirrhosis of liver; K76.0 Fatty (change of) liver, not elsewhere classified; N28.1 Cyst of kidney, acquired; Z79.01 Long term (current) use of anticoagulants; Z82.49 Family history of ischemic heart disease and other diseases of the circulatory system; Z86.73 Personal history of transient ischemic attack (TIA), and cerebral infarction without residual deficits; M19.90 Unspecified osteoarthritis, unspecified site; Z20.822 Contact with and (suspected) exposure to COVID-19; I50.9 Heart failure, unspecified
CPT/HCPCS: 36415; 71045; 74177; 76705; 80053; 80061; 80076; 80307; 81001; 82140; 82248; 83690; 83735; 83880; 84443; 85025; 85610; 85730; 86705; 86709; 86803; 87340; 87426; 93005; 93306; 96361; 96374; 96375; G0480; J1940; J3490; J7030; J7040; Q9967; U0003; U0005; 99285-25; G0378